=== PATIENT | male | born 1990 | race Caucasian/White ===

== ENCOUNTER 2020-09-16 18:04 | Emergency (ER) | payer OTHER ==
[2020-09-16 18:44] VITALS: BMI 30.2
[2020-09-16] MEDS ORDERED: ACETAMINOPHEN 500 MG TABLET (FP) PO ONE (19:04)
[2020-09-16] MEDS ORDERED: ACETAMINOPHEN 325 MG TABLET (FP) ONE (19:51)
[2020-09-16 20:46] LABS: BASO % 0.3 % (0-2.0); HEMATOCRIT 45.3 % (35.4-49); HEMOGLOBIN 15.5 GM/dL (11.7-16.9); LYMPH % 26.1 % (8-40); MCH 29.7 pg (25.7-33.7); MCHC 34.1 g/dl (32.0-35.9); MEAN CELL VOLUME 86.9 fl (80-96); MEAN PLT VOLUME 9.5 fl (7.5-11.1); MONO % 8.4 % (3.8-10.2); NEUT % 65.2 % (42.8-82.8); PLATELET COUNT 173 K/MM3 (134-434); RBC 5.21 M/mm3 (4.00-5.60); RDW 12.7 % (11.9-15.9); WHITE BLOOD COUNT 4.1 K/mm3 (4.0-10.0)
[2020-09-16 21:03] LABS: URINE APPEARANCE CLEAR; URINE BILIRUBIN NEGATIVE (NEGATIVE); URINE COLOR DK YELLOW; URINE GLUCOSE (UA) NEGATIVE (NEGATIVE); URINE KETONE TRACE (NEGATIVE); URINE LEUK ESTERASE NEGATIVE (NEGATIVE); URINE NITRITE NEGATIVE (NEGATIVE); URINE PROTEIN TRACE (NEGATIVE)
[2020-09-16 21:16] LABS: POTASSIUM 3.9 mmol/L (3.5-5.1)
[2020-09-16 21:19] LABS: ALBUMIN 3.9 g/dl (3.4-5.0); BLOOD UREA NITROGEN 10.1 mg/dL (7-18); CALCIUM 8.3 mg/dL (8.5-10.1)
[2020-09-16 21:22] LABS: CREATININE 0.9 mg/dL (0.55-1.3)
[2020-09-16 21:23] LABS: BILIRUBIN,TOTAL 0.4 mg/dL (0.2-1)
[2020-09-16 21:25] LABS: TOT PROT 7.2 g/dl (6.4-8.2)
[2020-09-16 22:41] VITALS: BP 130/84; PULSE 84; TEMP 98.9
== END 2020-09-16 23:19 | disposition home or self-care (01) ==
LOC: JER 18:04
DX: J06.9 Acute upper respiratory infection, unspecified (principal)
CPT/HCPCS: 36415; 80053; 81003; 85025; 87086; 87804; 99284-25; C9803; U0003

== ENCOUNTER 2021-11-22 20:08 | Emergency (ER) | payer OTHER ==
[2021-11-22 20:13] VITALS: PULSE 82; TEMP 98.1; BMI 33.3
[2021-11-22] MEDS ORDERED: DIPHTH,PERTUSS(ACELL),TET 0.5 ML DISP.SYRIN IM ONE ×2 (21:09→21:29)
[2021-11-22 21:37] LABS: URINE APPEARANCE CLEAR; URINE BILIRUBIN NEGATIVE (NEGATIVE); URINE COLOR YELLOW; URINE GLUCOSE (UA) NEGATIVE (NEGATIVE); URINE KETONE TRACE (NEGATIVE); URINE LEUK ESTERASE NEGATIVE (NEGATIVE); URINE NITRITE NEGATIVE (NEGATIVE); URINE PROTEIN NEGATIVE (NEGATIVE); URINE UROBILINOGEN 0.2 mg/dL (0.2-1.0)
[2021-11-22 21:38] LABS: BASO % 0.7 % (0-2.0); EOS % 2.3 % (0-4.5); HEMATOCRIT 44.9 % (35.4-49); HEMOGLOBIN 15.1 GM/dL (11.7-16.9); LYMPH % 21.4 % (8-40); MCH 29.6 pg (25.7-33.7); MCHC 33.8 g/dl (32.0-35.9); MEAN CELL VOLUME 87.6 fl (80-96); MEAN PLT VOLUME 9.4 fl (7.5-11.1); MONO % 5.7 % (3.8-10.2); NEUT % 69.9 % (42.8-82.8); PLATELET COUNT 209 10^3/uL (134-434); RBC 5.12 M/mm3 (4.00-5.60); RDW 13.5 % (11.9-15.9); WHITE BLOOD COUNT 9.3 K/mm3 (4.0-10.0)
[2021-11-22 21:56] LABS: CALCIUM 8.6 mg/dL (8.5-10.1)
[2021-11-22 21:57] LABS: BLOOD UREA NITROGEN 10.3 mg/dL (7-18)
[2021-11-22 22:00] LABS: CREATININE 0.9 mg/dL (0.55-1.3)
[2021-11-22 22:02] LABS: BILIRUBIN,TOTAL 0.3 mg/dL (0.2-1); TOT PROT 7.4 g/dl (6.4-8.2)
[2021-11-23] MEDS ORDERED: LIDOCAINE 5% TOPICAL PATCH ONE (01:04)
[2021-11-23] MEDS ORDERED: IBUPROFEN 400 MG TABLET (FP) PO ONE ×2 (01:04→01:07)
[2021-11-23] MEDS ORDERED: LIDOCAINE 5% TOPICAL PATCH TP ONE (01:07)
[2021-11-23 01:09] VITALS: BP 125/76
[2021-11-23] MEDS ORDERED: LIDOCAINE PATCH REMOVAL MC SCH (22:00)
== END 2021-11-23 01:10 | disposition home or self-care (01) ==
LOC: JER 20:08 → JERFT 20:08 → JER 11-23 01:10
PROC: 3E0234Z Introduction of Serum, Toxoid and Vaccine into Muscle, Percutaneous Approach (ICD-10-PCS; principal; 2021-11-22)
DX: M54.50 Low back pain, unspecified (principal); W01.0XXA Fall on same level from slipping, tripping and stumbling without subsequent striking against object, initial encounter
CPT/HCPCS: 36415; 70450-TC; 71260-TC; 72125-TC; 74160-TC; 80053; 81003; 85025; 87086; 90471; 90715; 99285-25

== ENCOUNTER 2022-01-15 19:52 | Emergency (ER) | payer OTHER ==
[2022-01-15 20:15] VITALS: BP 133/82; PULSE 103; TEMP 98.1; BMI 33.3
== END 2022-01-15 21:05 | disposition left against medical advice (07) ==
LOC: JER 19:52
DX: R68.84 Jaw pain (principal)
CPT/HCPCS: 99281-25

== ENCOUNTER 2022-01-16 11:09 | Inpatient (IN) | payer OTHER ==
[2022-01-16 14:54] LABS: BASO % 0.5 % (0-2.0); HEMATOCRIT 42.9 % (35.4-49); HEMOGLOBIN 14.6 GM/dL (11.7-16.9); LYMPH % 22.8 % (8-40); MCH 29.5 pg (25.7-33.7); MCHC 34.1 g/dl (32.0-35.9); MEAN CELL VOLUME 86.5 fl (80-96); MEAN PLT VOLUME 9.3 fl (7.5-11.1); MONO % 5.9 % (3.8-10.2); NEUT % 68.8 % (42.8-82.8); PLATELET COUNT 227 10^3/uL (134-434); RBC 4.96 M/mm3 (4.00-5.60); RDW 13.4 % (11.9-15.9); WHITE BLOOD COUNT 9.6 K/mm3 (4.0-10.0)
[2022-01-16 15:11] LABS: CHLORIDE 108 mmol/L (98-107); SODIUM 143 mmol/L (136-145)
[2022-01-16 15:12] LABS: ALBUMIN 3.8 g/dl (3.4-5.0); ANION GAP 8 MMOL/L (8-16); BLOOD UREA NITROGEN 11.4 mg/dL (7-18); CALCIUM 8.5 mg/dL (8.5-10.1); CO2 27 mmol/L (21-32); GLUCOSE,RANDOM 102 mg/dL (74-106)
[2022-01-16 15:16] LABS: CREATININE 0.9 mg/dL (0.55-1.3); SGOT/AST 20 U/L (15-37); SGPT/ALT 52 U/L (13-61)
[2022-01-16 15:18] LABS: BILIRUBIN,TOTAL 0.2 mg/dL (0.2-1)
[2022-01-16 15:19] LABS: ALK PHOS 97 U/L (45-117)
[2022-01-16 16:52] LABS: EPI CELLS 2 /uL (0-25.1); HYALINE CASTS 0 /uL (0-3.1); PH,URINE 8.5 (5.0-8.0); URINE APPEARANCE CLOUDY; URINE BACTERIA 1 /uL (0-1359); URINE BILIRUBIN NEGATIVE (NEGATIVE); URINE COLOR YELLOW; URINE GLUCOSE (UA) NEGATIVE (NEGATIVE); URINE KETONE NEGATIVE (NEGATIVE); URINE LEUK ESTERASE NEGATIVE (NEGATIVE); URINE NITRITE NEGATIVE (NEGATIVE); URINE PROTEIN 2+ (NEGATIVE); URINE RBC 5 /uL (0-23.9); URINE WBC 2 /uL (0-25.8)
[2022-01-16] MEDS ORDERED: methylPREDNISolone NA SUCC 125 MG/2 ML VIAL IVPB ONE (17:21)
[2022-01-16] MEDS ORDERED: methylPREDNISolone NA SUCC 125 MG/2 ML VIAL ONE ×2 (18:29→21:05)
[2022-01-16] MEDS ORDERED: methylPREDNISolone NA SUCC 1000 MG/8 ML VIAL IVPB ONE (20:58)
[2022-01-16] MEDS ORDERED: ACETAMINOPHEN 325 MG TABLET (FP) PO PRN (21:43)
[2022-01-16] MEDS ORDERED: ACETAMINOPHEN 325 MG TABLET (FP) ONE (22:06)
[2022-01-17] MEDS ORDERED: ENOXAPARIN NA (PORCINE) 40 MG/0.4 ML DISP.SYRIN SQ ONE (09:02)
[2022-01-17] MEDS ORDERED: PANTOPRAZOLE 40 MG TABLET PO ONE (09:02)
[2022-01-17] MEDS ORDERED: methylPREDNISolone NA SUCC 1000 MG/8 ML VIAL ONE (09:02)
[2022-01-17 09:24] LABS: HEMATOCRIT 46.2 % (35.4-49); HEMOGLOBIN 15.4 GM/dL (11.7-16.9); MCH 28.9 pg (25.7-33.7); MCHC 33.3 g/dl (32.0-35.9); MEAN CELL VOLUME 86.7 fl (80-96); MEAN PLT VOLUME 9.3 fl (7.5-11.1); PLATELET COUNT 234 10^3/uL (134-434); RBC 5.33 M/mm3 (4.00-5.60); RDW 13.6 % (11.9-15.9); WHITE BLOOD COUNT 12.5 K/mm3 (4.0-10.0)
[2022-01-17] MEDS: PANTOPRAZOLE 40 MG TABLET PO SCH (09:27)
[2022-01-17] MEDS: ENOXAPARIN NA (PORCINE) 40 MG/0.4 ML DISP.SYRIN SQ SCH (09:27)
[2022-01-17 10:00] LABS: ALBUMIN 4.1 g/dl (3.4-5.0)
[2022-01-17] MEDS ORDERED: methylPREDNISolone NA SUCC 1000 MG/8 ML VIAL IVPB SCH (10:00)
[2022-01-17 10:01] LABS: BLOOD UREA NITROGEN 13.3 mg/dL (7-18)
[2022-01-17 10:04] LABS: CREATININE 0.8 mg/dL (0.55-1.3); PHOSPHOROUS 2.3 mg/dL (2.5-4.9)
[2022-01-17 10:05] LABS: BILIRUBIN,TOTAL 0.4 mg/dL (0.2-1); TOT PROT 7.7 g/dl (6.4-8.2)
[2022-01-17 16:54] LABS: ANISOCYTOSIS 1+; MACROCYTOSIS 1+
[2022-01-17 16:58] LABS: PLATELET ESTIMATE ADEQUATE
[2022-01-17 17:18] VITALS: BMI 30.5
[2022-01-17] MEDS: methylPREDNISolone NA SUCC 1000 MG/8 ML VIAL IVPB SCH (22:24)
[2022-01-18] MEDS: ENOXAPARIN NA (PORCINE) 40 MG/0.4 ML DISP.SYRIN SQ SCH (10:11)
[2022-01-18] MEDS: PANTOPRAZOLE 40 MG TABLET PO SCH (10:12)
[2022-01-18 11:06] LABS: HEMATOCRIT 44.2 % (35.4-49); HEMOGLOBIN 14.8 GM/dL (11.7-16.9); MCH 29.3 pg (25.7-33.7); MCHC 33.5 g/dl (32.0-35.9); MEAN CELL VOLUME 87.3 fl (80-96); MEAN PLT VOLUME 9.6 fl (7.5-11.1); PLATELET COUNT 236 10^3/uL (134-434); RBC 5.06 M/mm3 (4.00-5.60); WHITE BLOOD COUNT 22.3 K/mm3 (4.0-10.0)
[2022-01-18] MEDS: methylPREDNISolone NA SUCC 1000 MG/8 ML VIAL IVPB SCH (11:14)
[2022-01-18 11:55] LABS: CALCIUM 9.2 mg/dL (8.5-10.1)
[2022-01-18 11:57] LABS: BLOOD UREA NITROGEN 12.1 mg/dL (7-18)
[2022-01-18 11:59] LABS: CREATININE 0.8 mg/dL (0.55-1.3)
[2022-01-18 12:02] LABS: ANISOCYTOSIS 0; MACROCYTOSIS 0
[2022-01-18] MEDS: WATER IVPB SCH ×2 (12:20→21:58)
[2022-01-18] MEDS: DEXTROSE 5% IVPB SCH ×2 (12:20→21:58)
[2022-01-18] MEDS: METHYLPREDNISOLONE NA SUCC IVPB SCH ×2 (12:20→21:58)
[2022-01-19 08:55] LABS: HEMATOCRIT 45.5 % (35.4-49); HEMOGLOBIN 15.1 GM/dL (11.7-16.9); MCH 28.9 pg (25.7-33.7); MCHC 33.2 g/dl (32.0-35.9); MEAN PLT VOLUME 9.6 fl (7.5-11.1); PLATELET COUNT 231 10^3/uL (134-434); RBC 5.23 M/mm3 (4.00-5.60)
[2022-01-19 09:13] LABS: CALCIUM 8.9 mg/dL (8.5-10.1)
[2022-01-19 09:14] LABS: BLOOD UREA NITROGEN 12.5 mg/dL (7-18)
[2022-01-19 09:17] LABS: CREATININE 0.8 mg/dL (0.55-1.3)
[2022-01-19] MEDS: PANTOPRAZOLE 40 MG TABLET PO SCH (09:25)
[2022-01-19] MEDS: ENOXAPARIN NA (PORCINE) 40 MG/0.4 ML DISP.SYRIN SQ SCH (09:26)
[2022-01-19] MEDS: METHYLPREDNISOLONE NA SUCC IVPB SCH (09:26)
[2022-01-19] MEDS: WATER IVPB SCH (09:26)
[2022-01-19] MEDS: DEXTROSE 5% IVPB SCH (09:26)
[2022-01-19 10:26] LABS: ANISOCYTOSIS 0; HELMET CELLS 0; HOWELL-JOLLY BODIES 0; MACROCYTOSIS 0; OVALOCYTE 0; ROULEAU 0; SICKELED CELLS 0; TARGET CELLS 0; TEAR DROP CELLS 0; TOXIC GRANULATION 0
[2022-01-19 14:25] VITALS: BP 141/89; PULSE 83; TEMP 98.7
== END 2022-01-19 16:09 | disposition home or self-care (01) | DRG 43 ==
LOC: JER 11:09 → JERBED 16:33 → J6S 01-17 16:44
PROVIDERS: ADMIT Internal Medicine; ATTEND Internal Medicine
DX: G35 Multiple sclerosis (principal); F12.90 Cannabis use, unspecified, uncomplicated; F31.89 Other bipolar disorder; D72.829 Elevated white blood cell count, unspecified; G43.909 Migraine, unspecified, not intractable, without status migrainosus; H55.00 Unspecified nystagmus; R80.9 Proteinuria, unspecified; F41.8 Other specified anxiety disorders; R63.4 Abnormal weight loss; R06.6 Hiccough; Z68.30 Body mass index [BMI] 30.0-30.9, adult; R20.2 Paresthesia of skin; M54.9 Dorsalgia, unspecified
CPT/HCPCS: 36415; 70553-TC; 72146-TC; 72156-TC; 80048; 80053; 80178; 81003; 82570; 83735; 83935; 84100; 84156; 84300; 84439; 84443; 84481; 85025; 85651; 86140; 87086; 93005; 93010; 99285-25; C9803-CS; U0003; U0005

== ENCOUNTER 2023-03-03 12:52 | Inpatient (IN) | payer OTHER ==
[2023-03-03 13:01] VITALS: BMI 32.1
[2023-03-03] MEDS ORDERED: methylPREDNISolone NA SUCC 1000 MG/8 ML VIAL IVPB ONE (14:35)
[2023-03-03] MEDS ORDERED: methylPREDNISolone NA SUCC 1000 MG/8 ML VIAL ONE (14:51)
[2023-03-03 15:26] LABS: BASO % 0.3 % (0-2.0); EOS % 2.4 % (0-4.5); HEMATOCRIT 44.3 % (35.4-49); HEMOGLOBIN 14.7 GM/dL (11.7-16.9); LYMPH % 25.1 % (8-40); MCH 28.8 pg (25.7-33.7); MCHC 33.3 g/dl (32.0-35.9); MEAN CELL VOLUME 86.5 fl (80-96); MEAN PLT VOLUME 8.9 fl (7.5-11.1); MONO % 5.8 % (3.8-10.2); NEUT % 66.4 % (42.8-82.8); PLATELET COUNT 187 10^3/uL (134-434); RBC 5.12 M/mm3 (4.00-5.60); RDW 13.7 % (11.9-15.9); WHITE BLOOD COUNT 7.9 K/mm3 (4.0-10.0)
[2023-03-03 16:16] LABS: POTASSIUM 4.2 mmol/L (3.5-5.1)
[2023-03-03 16:19] LABS: ALBUMIN 3.8 g/dl (3.4-5.0); CALCIUM 8.6 mg/dL (8.5-10.1)
[2023-03-03 16:23] LABS: CREATININE 0.9 mg/dL (0.55-1.3)
[2023-03-03 16:25] LABS: BILIRUBIN,TOTAL 0.2 mg/dL (0.2-1); TOT PROT 6.5 g/dl (6.4-8.2)
[2023-03-03] MEDS: HEPARIN NA (PORCINE) 5,000 UNITS/ML 1ML VIAL SQ SCH (22:09)
[2023-03-03] MEDS: LITHIUM CARBONATE 300 MG CAPSULE PO SCH (22:30)
[2023-03-04] MEDS: LITHIUM CARBONATE 300 MG CAPSULE PO SCH ×3 (05:19→21:53)
[2023-03-04 05:54] VITALS: RESP 18
[2023-03-04 09:31] LABS: POTASSIUM 4.2 mmol/L (3.5-5.1)
[2023-03-04 09:32] LABS: CALCIUM 9.1 mg/dL (8.5-10.1)
[2023-03-04 09:34] LABS: BLOOD UREA NITROGEN 8.6 mg/dL (7-18)
[2023-03-04 09:36] LABS: CREATININE 0.9 mg/dL (0.55-1.3)
[2023-03-04 09:54] LABS: HEMATOCRIT 49.4 % (35.4-49); HEMOGLOBIN 16.4 GM/dL (11.7-16.9); LYMPH % 7.5 % (8-40); MCH 28.5 pg (25.7-33.7); MCHC 33.2 g/dl (32.0-35.9); MEAN CELL VOLUME 85.8 fl (80-96); MEAN PLT VOLUME 9.6 fl (7.5-11.1); MONO % 0.6 % (3.8-10.2); NEUT % 91.9 % (42.8-82.8); PLATELET COUNT 210 10^3/uL (134-434); RBC 5.75 M/mm3 (4.00-5.60); RDW 13.5 % (11.9-15.9); WHITE BLOOD COUNT 13.9 K/mm3 (4.0-10.0)
[2023-03-04] MEDS ORDERED: methylPREDNISolone NA SUCC 125 MG/2 ML VIAL IVPUSH SCH (10:00)
[2023-03-04] MEDS ORDERED: DEXTROSE 5% IVPB SCH (10:00)
[2023-03-04] MEDS ORDERED: WATER IVPB SCH (10:00)
[2023-03-04] MEDS ORDERED: PATIENT'S OWN MEDICATION (NON-FORMULARY) (Cariprazine Hcl [Vraylar] 1.5 MG Capsule) PO SCH (10:00)
[2023-03-04] MEDS ORDERED: METHYLPREDNISOLONE NA SUCC IVPB SCH (10:00)
[2023-03-04] MEDS: HEPARIN NA (PORCINE) 5,000 UNITS/ML 1ML VIAL SQ SCH ×2 (10:09→21:53)
[2023-03-04 10:56] LABS: ANISOCYTOSIS 0; HELMET CELLS 0; HOWELL-JOLLY BODIES 0; MACROCYTOSIS 0; OVALOCYTE 0; ROULEAU 0; SICKELED CELLS 0; TARGET CELLS 0; TEAR DROP CELLS 0; TOXIC GRANULATION 0
[2023-03-04] MEDS: PANTOPRAZOLE 40 MG TABLET PO SCH (12:42)
[2023-03-05] MEDS: LITHIUM CARBONATE 300 MG CAPSULE PO SCH ×2 (06:10→14:26)
[2023-03-05 08:13] LABS: HEMATOCRIT 49.2 % (35.4-49); HEMOGLOBIN 16.1 GM/dL (11.7-16.9); MCHC 32.7 g/dl (32.0-35.9); MEAN CELL VOLUME 88.8 fl (80-96); MEAN PLT VOLUME 10.2 fl (7.5-11.1); PLATELET COUNT 178 10^3/uL (134-434); RBC 5.54 M/mm3 (4.00-5.60); WHITE BLOOD COUNT 23.3 K/mm3 (4.0-10.0)
[2023-03-05 08:42] LABS: POTASSIUM 4.3 mmol/L (3.5-5.1)
[2023-03-05 08:53] LABS: CALCIUM 9.2 mg/dL (8.5-10.1)
[2023-03-05 08:54] LABS: BLOOD UREA NITROGEN 12.7 mg/dL (7-18); MAGNESIUM 2.3 mg/dL (1.8-2.4)
[2023-03-05 08:57] LABS: CREATININE 0.9 mg/dL (0.55-1.3); PHOSPHOROUS 3.1 mg/dL (2.5-4.9)
[2023-03-05 08:58] LABS: BILIRUBIN,TOTAL 0.3 mg/dL (0.2-1)
[2023-03-05 09:18] LABS: ANISOCYTOSIS 0; HELMET CELLS 0; HOWELL-JOLLY BODIES 0; MACROCYTOSIS 0; OVALOCYTE 0; ROULEAU 0; SICKELED CELLS 0; TARGET CELLS 0; TEAR DROP CELLS 0; TOXIC GRANULATION 0
[2023-03-05] MEDS: HEPARIN NA (PORCINE) 5,000 UNITS/ML 1ML VIAL SQ SCH (10:20)
[2023-03-05] MEDS: PANTOPRAZOLE 40 MG TABLET PO SCH (10:20)
[2023-03-05] MEDS ORDERED: LORazepam 1 MG TABLET PO ONE (11:30)
[2023-03-05] MEDS ORDERED: methylPREDNISolone NA SUCC 1000 MG/8 ML VIAL IVPB ONE (12:00)
[2023-03-05 14:12] VITALS: BP 140/82; PULSE 81; TEMP 98.2
== END 2023-03-05 17:35 | disposition home or self-care (01) | DRG 43 ==
LOC: JER 12:52 → JERBED 15:16 → J6S 20:34
PROVIDERS: ADMIT Internal Medicine; ATTEND Internal Medicine
DX: G35 Multiple sclerosis (principal); I10 Essential (primary) hypertension; F31.9 Bipolar disorder, unspecified; R73.9 Hyperglycemia, unspecified; T38.0X5A Adverse effect of glucocorticoids and synthetic analogues, initial encounter; F41.8 Other specified anxiety disorders; G43.909 Migraine, unspecified, not intractable, without status migrainosus
CPT/HCPCS: 36415; 70553-TC; 72156-TC; 72157-TC; 80048; 80053; 80178; 82962; 83735; 84100; 85025; 97116-GP; 97162-GP; 99285-25; A9579; J1644